=== PATIENT | male | born 1995 | race Caucasian/White ===

== ENCOUNTER 2017-01-08 16:39 | Emergency (ER) | payer OTHER ==
[~2017-01-08] VITALS: Ht 170.2 cm; Wt 55.3 kg
[2017-01-08 16:48] VITALS: Ht 170.2 cm; Wt 55.3 kg
[2017-01-08 17:58] LABS: BUN/CREATININE RATIO 24.2 (10-20); CREATININE 0.8 mg/dl (0.60-1.40); POTASSIUM 3.8 mmol/L (3.5-5.1)
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
[2017-01-08 20:29] VITALS: BP 114/60; PULSE 106; TEMP 36.7; O2SAT 99
== END 2017-01-08 20:29 | disposition home or self-care (01) ==
LOC: EDBD 16:39 → C.EDB 16:41
DX: F10.129 Alcohol abuse with intoxication, unspecified (principal); Y90.8 Blood alcohol level of 240 mg/100 ml or more; T25.022A Burn of unspecified degree of left foot, initial encounter; X10.2XXA Contact with fats and cooking oils, initial encounter